=== PATIENT | female | born 1930 | race Caucasian/White ===

== ENCOUNTER 2017-10-18 18:28 | Emergency (ER) | payer OTHER, MEDICARE ==
[~2017-10-18] VITALS: Ht 154.9 cm; Wt 49.4 kg
[2017-10-18 18:50] VITALS: BP 136/74
== END 2017-10-18 23:47 | disposition admitted as inpatient to this hospital (09) ==
LOC: ERH 18:28
DX: M54.2 Cervicalgia (principal)

== ENCOUNTER 2017-11-02 11:03 | Inpatient (IN) | payer OTHER, MEDICARE ==
[~2017-11-02] VITALS: Ht 152.4 cm; Wt 54.4 kg
--- NOTE | 2017-11-02 12:31 | RADIOLOGY REPORT ---
EXAMINATION: XR FOOT, LEFT CLINICAL INFORMATION: Left ankle pain and swelling. COMPARISON: Left ankle series same day as the current study. TECHNIQUE: AP, lateral, and oblique views of the left foot. FINDINGS: There is generalized soft tissue swelling in both medial and lateral aspects of the left ankle, particularly over the dorsum of the foot. Severe degenerative changes are present at the first digit tarsometatarsal joint with joint space narrowing and juxta-articular cystic structures present on both sides of the joint space as well as sclerotic changes in the medial cuneiform. The remainder of the bony structures of the left foot are unremarkable. The bony alignment is otherwise within normal limits. 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
--- NOTE | 2017-11-02 12:33 | RADIOLOGY REPORT ---
EXAMINATION: XR ANKLE, LEFT CLINICAL INFORMATION: Left ankle pain and swelling. COMPARISON: Refer to the plain film series of the left foot performed on the same day as the current study. Right ankle series dated 10/26/2017. TECHNIQUE: AP, lateral, and mortise views of the left ankle. FINDINGS: There is generalized soft tissue swelling over the left ankle which is similar in appearance when compared to the plain film study of the right ankle on 10/26/2017. No focal soft tissue swelling is noted. The bony alignment is maintained including an intact ankle mortise. There is no evidence of an ankle joint effusion on the lateral view. The bony structures are unremarkable with no cortical defects or bony destructive changes present. IMPRESSION: Generalized soft tissue swelling, similar to the right ankle series of 10/26/2017. No acute findings are noted.
[2017-11-02] MEDS ORDERED: AMLODIPINE BES2.5 M1 PO (14:32)
[2017-11-02] MEDS ORDERED: METOPROLOL TART25 M1 PO (14:33)
[2017-11-02 16:10] LABS: ABSOLUTE BASOPHIL COUNT 0 /CUMM (0.0-0.2); ABSOLUTE EOSINOPHIL COUNT 0 /CUMM (0.0-0.7); ABSOLUTE GRANULOCYTE CT 7.5 /CUMM (1.4-6.5); ABSOLUTE LYMPH COUNT 1.1 /CUMM (1.2-3.4); ABSOLUTE MONOCYTE COUNT 0.9 /CUMM (0.10-0.60); BASOPHIL % 0.2 % (0.0-2.0); EOSINOPHIL % 0.2 % (0-5); GRANULOCYTE % 79.4 % (42.2-75.2); HEMATOCRIT 33.8 % (37-47); MEAN CORPUSCULAR HGB 31.1 PG (27.0-31.0); MEAN CORPUSCULAR HGB CONC 32.8 G/DL (33.0-37.0); MEAN CORPUSCULAR VOLUME 94.8 FL (81.0-99.0); PLATELET COUNT 370 /CUMM (130-400); RBC DISTRIBUTION WIDTH 13.1 % (11.5-14.5); RED BLOOD CELL CT 3.57 /CUMM (4.20-5.40); WHITE BLOOD CELL COUNT 9.5 /CUMM (4.8-10.8)
--- NOTE | 2017-11-02 17:23 | ED UPPER/LOWER EXTREMITY COMPL ---
History of Present Illness General Chief Complaint: Foot or Ankle Injury Stated Complaint: LFT ANKLE PAIN SENT BY PMD Source: patient, family Exam Limitations: no limitations Vital Signs & Intake/Output Vital Signs & Intake/Output Vital Signs Date Time Temp Pulse Resp B/P B/P Pulse O2 O2 Flow FiO2 Mean Ox Delivery Rate 11/02 1701 88 19 137/78 99 Room Air 11/02 1411 97 Room Air 11/02 1354 98.0 87 20 159/69 97 Room Air 11/02 1141 97.5 76 18 122/71 98 Room Air Allergies Coded Allergies: NO KNOWN ALLERGIES (12/18/13) Reconcile Medications Amlodipine Besylate 2.5 MG TABLET 1 TAB PO DAILY HEART (Reported) Meloxicam (Mobic) 7.5 MG TABLET 1 TAB PO DAILY foot pain Metoprolol Tartrate 25 MG TABLET 0.5 TAB PO BID HEART (Reported) Triage Note: 87 YO FEMALE TO TRIAGE C/O PAIN AND SWELLING TO L ANKLE. PT STATES DR DELANEY SENT HER IN FOR EVAL OF ?RUPTURED TENDON. STATES PAIN IN L ANKLE X 2 WEEKS, PT STATES SHE TRIPPED AND FELL. PA IN TRIAGE FOR EVAL. Triage Nurses Notes Reviewed? yes HPI: Patient presents for evaluation of worsening and severe constant aching left foot pain with swelling and redness. Patient's pain worsens with attempts to ambulate and she is unable to weight-bear on the affected extremity. Nothing seems to make her feel better at this point. She denies history of gout but states she fell about 2 weeks ago and her primary care physician was concerned about a ruptured tendon (patient had been on Levaquin recently). Past History Travel History Traveled to [place] past 21 day No Medical History Any Pertinent Medical History? 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 Hx Contributory? No Review of Systems Review of Systems Constitutional: Reports: no symptoms. EENTM: Reports: no symptoms. Respiratory: Reports: no symptoms. Cardiovascular: Reports: no symptoms. Gastrointestinal/Abdominal: Reports: no symptoms. Genitourinary: Reports: no symptoms. Musculoskeletal: Reports: see HPI. Skin: Reports: no symptoms. Neurological/Psychological: Reports: no symptoms. Hematologic/Endocrine: Reports: no symptoms. Immunological: Reports: no symptoms. All Other Systems: Reviewed and Negative Physical Exam Physical Exam General Appearance: SEE BELOW Comments: Gen.: Well-nourished, well-developed, no acute respiratory distress. Head: Normocephalic, atraumatic. Eyes: Normal inspection bilaterally Ears: Normal inspection bilaterally Nose: Normal inspection Throat/mouth : Moist mucosa Neck: Supple, full range of motion, no goiter Heart: Regular rate and rhythm Lungs: Quiet respirations Back: Normal range of motion Extremities: Left foot: Erythema and soft tissue swelling of the dorsal aspect over the first and second metatarsal heads, similar area of redness and swelling over the medial aspect of ankle and proximal foot. Neurologic: Cranial nerves grossly intact, speech is clear Skin: warm and dry Psychiatric: Calm, cooperative, no apparent delusions or hallucinations Progress Differential Diagnosis: cellulitis, contusion, fracture, gout, sprain Plan of Care: Orders Procedure Date/time Status Regular Diet 11/03 B Active Misc Message 11/02 2050 Active ED Holding Orders 11/02 2050 Active Admit to inpatient 11/02 2050 Active Vital Signs 11/02 2050 Active Code Status 11/02 2050 Active CASE MANAGEMENT CONSULT 11/02 180 Active C-REACTIVE PROTEIN 11/02 1540 Complete URIC ACID 11/02 1433 Complete HIGH SENSITIVITY CRP 11/02 1433 Complete CBC WITHOUT DIFFERENTIAL 11/02 143 Complete BASIC METABOLIC PANEL 11/02 1433 Complete Laboratory Tests 11/02/17 1540: Anion Gap 13, Estimated GFR > 60, BUN/Creatinine Ratio 25.7 H, Glucose 161 H, Uric Acid 3.2, Calcium 9.1, C-Reactive Prot, Quant 5.9 H, C-React Prot High Sens > 15.0 H, CBC w Diff NO MAN DIFF REQ, RBC 3.57 L, MCV 94.8, MCH 31.1 H, MCHC 32.8 L, RDW 13.1, MPV 6.0 L, Gran % 79.4 H, Lymphocytes % 11.1 L, Monocytes % 9.1, Eosinophils % 0.2, Basophils % 0.2, Absolute Granulocytes 7.5 H, Absolute Lymphocytes 1.1 L, Absolute Monocytes 0.9 H, Absolute Eosinophils 0, Absolute Basophils 0 Diagnostic Imaging: Discussed w/RAD: Radiology Read. Radiology Impression: PATIENT: NICHOLAS BLANCHARD PRESENT AGE: 61 PATIENT ACCOUNT NO: [id number] : [birth year] LOCATION: [facility] ORDERING PHYSICIAN: Forrest Coleman MD SERVICE DATE: 11/02/17 EXAM TYPE : CAT - CTA CHEST EXAMINATION: CT ANGIOGRAM CHEST CLINICAL INFORMATION: History of breast cancer. COMPARISON: CT scan of chest with IV contrast dated 2016. TECHNIQUE: Multiple axial images were obtained through the chest after the administration of 50 mL of Optiray 320 intravenous contrast. Images were reviewed on a dedicated 3-D workstation. DLP: 354.80 mGy-cm FINDINGS: EXAMINATION: CT ANGIOGRAM CHEST CLINICAL INFORMATION: History of right breast cancer evaluate for pulmonary embolism. COMPARISON: CT scan of chest abdomen and pelvis dated 09/08/2017. TECHNIQUE: Multiple axial images were obtained through the chest after the administration of 50 mL of Optiray 320 intravenous contrast. Images were reviewed on a dedicated 3-D workstation. DLP: 354.80 mGy-cm FINDINGS : The contrast bolus is suboptimal which reduces the sensitivity of this study, the study is nondiagnostic. Opacification of the pulmonary arterial system is heterogeneous without definite identification of focal areas of filling defects; areas of particularly heterogeneous regions are in the main left and right pulmonary trunks, on the right side at the bifurcation with the right upper lobe pulmonary artery. The postoperative changes in the soft tissues of the left breast are again noted, however new small pockets of gas within the subcutaneous soft tissue overlying the inferior aspect of the sternum are new since the previous study. PULMONARY PARENCHYMA: There are multiple new areas of increased density which are diffusely distributed throughout the bilateral lungs, most prominent in the superior lateral aspect of the left upper lobe but also present within the periphery of the right lower lobe, right upper lobe and central right middle lobe. 2 soft tissue pulmonary nodules present in the anterior aspect of the right middle lobe have increased in size compared to the prior study the more posterior currently measures 7 mm in diameter compared to 5 mm on the previous study, while the more anterior of the structures previously measured 2 mm on the prior study and currently measures 6 mm. The pulmonary parenchymal findings are superimposed on centrilobular emphysematous changes. New multiple soft tissue mass lesions are present in the right lung base, the largest measures 1.4 cm in greatest dimension these are more solid in appearance compared to the more superior areas of groundglass opacification. MEDIASTINUM: The mediastinal lymphadenopathy present on the prior study has increased in the interval with an interval increase in the size of the prevascular left upper mediastinal lymph node which currently measures 1.3 cm in short axis dimension compared to 0.9 on the prior study. Additionally there are multiple lymph nodes again noted in the left lateral aspect of the main left pulmonary trunk overall stable, subcarinal lymph nodes and left hilar lymph nodes are increased in size. UPPER ABDOMEN: No enhancing hepatic mass lesions are identified. The upper abdomen is overall unremarkable. OSSEOUS STRUCTURES: The bony metastatic focus within the T6 and T7 vertebral bodies are significantly increased in size as well as an interval increase in the size of multiple additional bony sclerotic structures within the spine and bilateral ribs, as well as the proximal left humerus. IMPRESSION: 1. The study is nondiagnostic for identification of filling defects within the bilateral pulmonary artery system. The heterogeneous density within the left and right main pulmonary trunks are noted and pulmonary emboli are not excluded. 2. 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 3. Increasing mediastinal and hilar lymphadenopathy. 4. Bony metastatic disease with individual foci increasing in size as well as interval development of new foci noted within the vertebral bodies and bilateral ribs as well as the proximal left humerus. 4. No enhancing hepatic mass lesions are identified at this time. DICTATED BY: Mili Stanley MD DATE/TIME DICTATED:11/02/171240 PORTRAIT PHOTOGRAPHER:STACIA DATE/TIME TRANSCRIBED:1240 CONFIDENTIAL, DO NOT COPY WITHOUT APPROPRIATE AUTHORIZATION. < Electronically signed in Other Vendor System> SIGNED BY: Mili Stanley MD 11/02/17 1323, PATIENT: MAK GRULLON PRESENT AGE: 87 PATIENT ACCOUNT NO: [id number] : 30 LOCATION: [facility] ORDERING PHYSICIAN: Abdelrahman WINTERS SERVICE DATE: 11/02/17 EXAM TYPE : RAD - XRY-FOOT COMPLETE, LEFT EXAMINATION: XR FOOT, LEFT CLINICAL INFORMATION: Left ankle pain and swelling. COMPARISON: Left ankle series same day as the current study. TECHNIQUE: AP, lateral, and oblique views of the left foot. FINDINGS: There is generalized soft tissue swelling in both medial and lateral aspects of the left ankle, particularly over the dorsum of the foot. Severe degenerative changes are present at the first digit tarsometatarsal joint with joint space narrowing and juxta-articular cystic structures present on both sides of the joint space as well as sclerotic changes in the medial cuneiform. The remainder of the bony structures of the left foot are unremarkable. The bony alignment is otherwise within normal limits. 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 DICTATED BY: Mili Stanley MD DATE/TIME DICTATED:11/02/171224 PORTRAIT PHOTOGRAPHER:STACIA DATE/ TIME TRANSCRIBED:11/02/171224 CONFIDENTIAL, DO NOT COPY WITHOUT APPROPRIATE AUTHORIZATION. <Electronically signed in Other Vendor System> SIGNED BY: Mili Stanley MD 11/02/17 1231 Comments: 11/02/2017 5:32:27 PM I have updated Mak on her test results but she feels she's incapable of ambulating given her pain. I have ordered pain medication and we' ll reevaluate. Disposition is pending. 11/02/2017 8:55:11 PM given the lack of fever or elevated white blood cell count I doubt cellulitis. Patient has been treated with an anti-inflammatory and narcotic pain reliever but has not improved enough to be able to ambulate. Departure Departure Disposition: HOME OR SELF CARE Condition: Stable Clinical Impression Primary Impression: Arthritis of foot Referrals: Allan MCKEON,Dre Regalado (PCP/Family) Additional Instructions: Mobic as prescribed for your pain. Follow-up with your primary care physician in 48 hours for reevaluation. Return if fever or any other concerns or worsening. Please note that there might be incidental findings in your evaluation that are unrelated to the current emergency department visit. Please notify your primary care doctor about this emergency department visit in order to obtain and review all of the testing performed so that these incidental findings can be monitored as needed. If you had an x-ray performed, please understand that some fractures may not be seen on the initial set of x-rays. If your symptoms persist you might need a repeat set of x-rays to check for such a fracture. If you had a laceration evaluated, please understand that foreign bodies such as glass or wood may not be visible to the naked eye or on plain x-rays. If the wound becomes red, swollen, increasingly more painful or if there is any drainage from the wound, please have it reevaluated by a physician for the possibility of a retained foreign body. If you're unable to follow up as outlined in the discharge instructions please return to the emergency department. Thank you for choosing the [facility] Emergency Department for your care. It was a pleasure to serve you today. Familia Garcia M.D. [facility] Departure Forms: Customer Survey General Discharge Information Prescriptions: Current Visit Scripts Meloxicam (Mobic) 1 TAB PO DAILY #20 TAB Admission Note Spoke With: Ghanshyam MCKEON,Anni Documentation of Exam: Documentation of any treatments & extenuating circumstances including Concerns Regarding Discharge (functional status, medication knowledge or non-compliance, living conditions, etc.) that warrant an admission rather than observation: Patient presents with worsening redness and swelling of the left foot consistent with arthritis. The patient is unable to bear weight on the foot secondary to severe pain despite medication with anti-inflammatories and narcotic pain relievers. I feel she is unsafe for outpatient management given her high risk of fall with subsequent injury and inability to manage ADLs. She would likely return in worse clinical condition. I feel she now requires hospitalization for nonweightbearing along with treatment with anti-inflammatories and narcotic pain relievers. Physical therapy consultation should be obtained to assess the patient's gait stability and potential for falling. Rheumatology consultation should be considered if patient's symptoms do not respond to treatment. I feel this patient will require a multiple day hospitalization.
[2017-11-02] MEDS ORDERED: MOBIC7.5 M1 PO (17:25)
--- NOTE | 2017-11-02 22:16 | History & Physical ---
Lili MCKEON,Martine 11/02/17 4306: General Information and HPI MD Statement: I have seen and personally examined MAK GRULLON and documented this H&P. The patient is a 87 year old F who presented with a patient stated chief complaint of left ankle pain. Source of Information: patient, family Exam Limitations: no limitations History of Present Illness: 87 years old female with past medical history of CAD, hypertension comes to the ED complaining of pain in the left ankle, she reports that pain was getting worse over the past 2 weeks, it was associated with sweating and redness of the left ankle, the pain got worse to the point that she was not able to put any weight on her leg today. She went to her primary care doctor and recommended MRI however she had to wait 2 days to get this when she decided to come to the ED to be evaluated. Patient also reports frequent fleeting arthralgia affecting her right elbow, shoulder, neck however these joints were not swollen or inflamed. Patient denies nausea, vomiting, chest pain, diarrhea or constipation. She follow up with his test center administrator Dr. Horton for irregular heartbeats and he discontinued her Lipitor recently due to elevated liver enzymes. Patient had strep pneumonia recently and was treated with a course of levofloxacin after which she started to deteriorate and was noticed by her family to be disoriented, confused and exhausted, she was also noticed to have visual hallucinations while she was on the levofloxacin. She stopped it one week ago. Patient denies any injury to her lower extremity, she also denies any recent travel or sick contacts. Patient lives at home and is independent in her daily activities Vital signs on admission: Temperature 97.8, blood pressure 118/60, pulse 76 Labs: WBC 9.5, hemoglobin 11.1, platelets 370, sodium 138, potassium 4.1, BUN 18 , creatinine 0.7, glucose 161, CRP 5.9, AST 39, AST 63 Allergies/Medications Allergies: Coded Allergies: NO KNOWN ALLERGIES (12/18/13) Home Med list Amlodipine Besylate 2.5 MG TABLET 1 TAB PO DAILY HEART (Reported) Aspirin (Ecotrin*) 81 MG TABLET.DR 1 TAB PO DAILY HEART HEALTH (Reported) Meloxicam (Mobic) 7.5 MG TABLET 1 TAB PO DAILY foot pain Metoprolol Tartrate 25 MG TABLET 0.5 TAB PO BID HEART (Reported) Past History Travel History Traveled to [place] past 21 day No Medical History Neurological: NONE EENT: NONE Cardiovascular: CAD, hypertension Respiratory: NONE Gastrointestinal: NONE Hepatic: NONE Renal: NONE Musculoskeletal: NONE Psychiatric: NONE Endocrine: NONE Blood Disorders: NONE Cancer(s): NONE 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 Cardiovascular: Denies: chest pain, edema, orthopena, palpitations. Respiratory: Denies: cough, hemoptysis, orthopnea, short of breath. GI: Denies: abdominal pain, bloating, diarrhea, bowel incontinence, melena, nausea. Genitourinary: Denies: discharge, dysuria, frequency, hesitation, nocturia, pain. Musculoskeletal: Reports: joint pain, joint swelling. Skin: Denies: no symptoms. Neurological/Psychological: Reports: cognitive dysfunction, confusion. Hematologic/Endocrine: Denies: no symptoms. Immunologic/Allergic: Denies: no symptoms. Exam & Diagnostic Data Last 24 Hrs of Vital Signs/I&O Vital Signs Date Time Temp Pulse Resp B/P B/P Pulse O2 O2 Flow FiO2 Mean Ox Delivery Rate 11/03 0031 65 142/76 11/02 2244 97.7 80 19 150/82 95 Room Air 11/02 2109 97.8 76 18 118/60 98 Room Air 11/02 1701 88 19 137/78 99 Room Air 11/02 1411 97 Room Air 11/02 1354 98.0 87 20 159/69 97 Room Air 11/02 1141 97.5 76 18 122/71 98 Room Air Intake & Output 11/03 0800 11/03 0000 11/02 1600 Intake Total 200 0 Output Total 150 Balance 50 0 Intake, IV 0 Intake, Oral 200 Output, Urine 150 Patient 120 lb 120 lb Weight Weight Reported by Patient Estimated Measurement Method Physical Exam General Appearance Alert, Oriented X3, Cooperative, No Acute Distress Skin No Rashes, No Breakdown, No Significant Lesion HEENT Atraumatic, PERRLA, EOMI, Mucous Membr. moist/pink Neck Supple, No JVD Cardiovascular Normal S1, Normal S2, No Murmurs Lungs Clear to Auscultation Abdomen Normal Bowel Sounds, Soft, No Tenderness Neurological Normal Speech, Strength at 5/5 X4 Ext, Normal Tone Extremities No Clubbing, No Cyanosis, left ankle is erythematous, warm and tender to touch Vascular Normal Pulses Assessment/Plan Assessment: 87 years old female with past medical history of CAD, hypertension comes to the ED complaining of pain in the left ankle, she reports that pain was getting worse over the past 2 weeks, it was associated with sweating and redness of the left ankle, the pain got worse to the point that she was not able to put any weight on her leg today.Patient also reports frequent fleeting arthralgia affecting her right elbow, shoulder, neck however these joints were not swollen or inflamed. #Left ankle arthritis X-ray show significant degenerative changes in the first digit tarsometatarsal joint, ankle x-ray showed generalized soft tissue swelling, elevated CRP Admitted to general medicine floor Obtain MRI of the left ankle PT evaluation for placement Follow up on perez culture and urinalysis Pain control with Tylenol, ibuprofen tramadol Rheumatology consult appreciated Close monitoring of vital signs Please contact Dr. Zambrano to obtain an cardiac history #Cognitive impairment: CT scan on October 26 was negative for any hemorrhage or infarct Was noticed by the family Improved after discontinuing levofloxacin Avoid delirium trigger #History of transaminitis: Check LFT Chronic medical conditions including CAD and hypertension Continue home meds of aspirin, amlodipine 2.5, metoprolol 12.5 mg twice a day Patient is full code DVT prophylaxis with Lovenox Heart healthy diet As Ranked By This Provider Problem List: 1. Arthritis of foot 2. Elevated LFTs Core Measures/Misc (05/30) Acute Coronary Syndrome ACS Diagnosis: No Congestive Heart Failure Congestive Heart Failure Diagnosis No Cerebrovascular Accident CVA/TIA Diagnosis: No VTE (View Protocol) VTE Risk Factors Age>40 No Mechanical VTE Prophylaxis d/t N/A MechProphylax Ordered No VTE Pharm Prophylaxis d/t NA PharmProphylax ordered Sepsis (View protocol) Sepsis Present: No Kwesi Crisostomo 11/03/17 0605: Resident Review Statement Resident Statement: examined this patient, discussed with help desk internship, agreed with help desk internship, discussed with family, reviewed EMR data (avail), discussed with nursing , discussed with case mgmt, reviewed images, amended to note Other Findings: This is 87 years old female with medical history of CAD, hypertension, arthritis. She presented to emergency department with chief complaint of pain in the left ankle, she reports that pain was getting worse over the past 2 weeks , it was associated with redness of the left ankle, the pain got worse to the point that she was not able to put any weight on her leg today or to walk well. The family and the patient stated that around 4-5 weeks ago she did develop strep throat and she went to see her primary care doctor who prescribed for her antibiotic but after one week(received cefuroxime for 7 days followed with levofloxacin for another 7 days]. Condition did not improve so she went back for further evaluation and he changed antibiotic and he stated that she had a bronchitis. According to her daughter since then the patient was disoriented and confused and also her mentioned that she had a visual hallucination. The daughter states her mental status slightly improve comparing with that time , patient was sent to ED on last week and head CAT scan was done that did not show any acute pathological process. About 2 weeks ago she started to have multiple joint swelling and pain, she report both elbows and both ankle joint that resolved by itself she went to see her primary care doctor who plan to obtain MRI for the further assessment. Patient stopped taking his Lipitor 1 week ago due to transaminitis. Physical examination, lab and imaging as above. Problem list: -Migratory arthritis with elevated CRP -Generalized weakness WITH difficult ambulation -History of confusion, disorientation -History of transaminitis Plan: -Admit patient to general medicine floor -Vitals every shift -We'll hold off on antibiotic for now, Panculture, urinalysis. -Rheumatology consultation in a.m. -Please obtain the MRI of the right foot/ankle as the patient is scheduled to do it today as an outpatient. -Check LFTs, acceptable limits start the patient on as needed Motrin, Tylenol, tramadol -Please contact the patient test center administrator Dr. Lorenzo to obtain more information about her cardiac history. -Physical therapy consultation in a.m. for placement. -Continue home medication -Heart healthy diet -DVT prophylaxis subcutaneous Lovenox -Full code Ghanshyam MCKEON, [facility] 11/03/17 0837: Attending Review Statement Attending Statement Attending Statement: examined this patient, discuss w/resident/PA/EMPLOYEE COMMUNICATIONS SPECIALIST, agreed w/resident/PA/EMPLOYEE COMMUNICATIONS SPECIALIST, discussed with family, reviewed images, amended to note Attending Assessment/Plan: 87 yo F with h/o CAD s/p atherectomy, HTN, severe OA, Dequervain synovitis, recently treated for strep throat (cefuroxime) and bronchitis (levofloxacin), is here for evaluation of left foot pain and swelling with inability to ambulate or even bear weight over the past 2 weeks. Family also reports confusion and disorientation with visual hallucination while she was on levofloxacin for bronchitis, but it seems to be clearing up. She was seen in the ER 1 week back after a fall at home, imaging did not reveal any acute changes. Patient also notes that she has had shoulder followed elbow and now ankle joint pain/ swelling. She is scheduled for MRI of left foot today. Vitals stable. Exam as above. Labs: no leukocytosis, AST 39, ALT 63, elevated CRP. Uric acid levels normal. Ankle Xray: generalized soft tissue swelling. Foot Xray left: severe degenerative changes in first digit tarsometatarsal joint. Assessment and plan: 1. Left ankle pain with gait instability 2. Severe osteoarthritis with elevated CRP 3. Confusion possible delirium improving. 4. History of CAD and HTN 5. Transaminitis likely recent antibiotic induced - Admit to General medicine - Fall precautions - Check ESR and RF - Panculture, watch off antibiotics, low suspicion for left foot cellulitis - MRI left foot in AM - Obtain rheumatology consult - Pain management with tylenol, NSAIDs and tramadol - PT consult, possible placement - Obtain EKG - Resume amlodipine, aspirin, metoprolol. - Since LFTs are trending down, resume statin. DVT ppx Lovenox. Full code.
[2017-11-02 22:44] VITALS: BP 150/82
[2017-11-02] MEDS ORDERED: ASPIRIN EC81 M1 PO (22:49)
--- NOTE | 2017-11-03 04:33 | Admission Certification ---
Admission Certification Certification Statement - As attending physician, I certify that at the time of - admission, based on clinical presentation, severity of - symptoms, need for further diagnostic testing and - therapeutic interventions, and risk of adverse outcomes - without in-hospital treatment, in my clinical assessment, - this patient requires an acute hospital stay for a minimum - of two nights or longer. I have also considered psychsocial - factors such as support system, advanced age, financial - issues, cognitive issues, and failed out-patient treatments, - past re-admission history, safety of patient, and lack of - compliance as applicable. Specific rationale supporting this admission is: Left foot pain, gait instability.
[2017-11-03 05:28] VITALS: BP 150/84
--- NOTE | 2017-11-03 07:06 | PN- Housestaff ---
See Addendum Subjective Follow-up For: Left ankle pain Subjective: Admitted last night for left ankle pain preventing her from walking. This morning, she has no pain at rest and feels good. Mentions that she fell last week, does not remember injuring left ankle but patrient is poor historian. Daughter was present, did not witness fall. 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 She had bronchitis recently but no fevers, chills, or night sweats. Review of Systems Constitutional: Reports: no symptoms. EENTM: Reports: no symptoms. Cardiovascular: Reports: no symptoms. Respiratory: Reports: no symptoms. Gastrointestinal: Reports: no symptoms. Genitourinary: Reports: no symptoms. Musculoskeletal: Reports: see HPI. Skin: Reports: no symptoms. Neurological/Psychological: Reports: no symptoms. Hematologic/Endocrine: Reports: no symptoms. Immunologic/Allergic: Reports: no symptoms. Objective Last 24 Hrs of Vital Signs/I&O Vital Signs Date Time Temp Pulse Resp B/P B/P Pulse O2 O2 Flow FiO2 Mean Ox Delivery Rate 11/03 0528 98.1 70 20 150/84 98 Room Air 11/03 0031 65 142/76 11/02 2244 97.7 80 19 150/82 95 Room Air 11/02 2109 97.8 76 18 118/60 98 Room Air 11/02 1701 88 19 137/78 99 Room Air 11/02 1411 97 Room Air 11/02 1354 98.0 87 20 159/69 97 Room Air 11/02 1141 97.5 76 18 122/71 98 Room Air Intake & Output 11/03 0800 11/03 0000 11/02 1600 Intake Total 200 0 Output Total 150 Balance 50 0 Intake, IV 0 Intake, Oral 200 Output, Urine 150 Patient 54.431 kg 54.431 kg Weight Weight Reported by Patient Estimated Measurement Method Physical Exam General Appearance: Alert, Cooperative, No Acute Distress Cardiovascular: Regular Rate, Normal S1, Normal S2 Lungs: Clear to Auscultation Abdomen: Normal Bowel Sounds, Soft, No Tenderness Neurological: Normal Speech Extremities: Estefani's nodes on hands, nontender. Feet normal on inspection, nontender to palpation. Mild pain to ankle flexion on left, ROM intact. Current Medications: Current Medications Sig/Sabas Start time Last Medication Dose Route Stop Time Status Admin Acetaminophen 500 MG Q8P PRN 11/020 AC PO Amlodipine Besylate 2.5 MG DAILY 11/03 1000 AC PO Aspirin Buffered 81 MG DAILY 11/03 1000 AC PO Enoxaparin Sodium 40 MG DAILY 11/03 1000 AC SC Ibuprofen 400 MG Q8P PRN 11/02 2315 AC PO Ibuprofen 0 .STK-MED ONE 11/02 1741 DC PO Ibuprofen 400 MG ONCE ONE 11/02 1730 DC 11/02 PO 11/02 1731 1738 Metoprolol Tartrate 12.5 MG BID 11/02 2359 AC 11/03 PO 0031 Oxycodone HCl 5 MG Q12P PRN 11/02 2299 DC PO Tramadol HCl 50 MG Q8 PRN 11/02 2300 AC PO Tramadol HCl 50 MG ONCE ONE 11/02 174 DC 11/02 PO 11/02 174 1738 Tramadol HCl 0 .STK-MED ONE 11/02 1741 DC PO Last 24 Hrs of Lab/Alfredo Results Last 24 Hrs of Labs/Mics: Laboratory Tests 11/02/17 1540: Anion Gap 13, Estimated GFR > 60, BUN/Creatinine Ratio 25.7 H, Glucose 161 H, Uric Acid 3.2, Calcium 9.1, Magnesium 2.1, Total Bilirubin 0.5, Direct Bilirubin 0.2, AST 39 H, ALT 63 H, Alkaline Phosphatase 108, C-Reactive Prot, Quant 5.9 H, C-React Prot High Sens > 15.0 H, Total Protein 6.7, Albumin 3.4 L, CBC w Diff NO MAN DIFF REQ, RBC 3.57 L, MCV 94.8, MCH 31.1 H, MCHC 32.8 L, RDW 13.1 , MPV 6.0 L, Gran % 79.4 H, Lymphocytes % 11.1 L, Monocytes % 9.1, Eosinophils % 0.2, Basophils % 0.2, Absolute Granulocytes 7.5 H, Absolute Lymphocytes 1.1 L, Absolute Monocytes 0.9 H, Absolute Eosinophils 0, Absolute Basophils 0 Microbiology 11/02 2309 BLOOD: Blood Culture - RECD 11/02 2299 BLOOD: Blood Culture - RECD 11/02 2250 URINE ROUT: Urine Culture - COLB Assessment/Plan Assessment: 87 years old female with past medical history of CAD and hypertension who presented with complaints of pain in the left ankle. Problem list 1. Left ankle pain #Left ankle pain: X-ray show degenerative changes and soft tissue swelling but no fracture. Exam today reveals tenderness on flexion of the metatarsal joint and ankle. We'll get an MRI. Differential includes stress fracture versus fasciitis versus sprain. Gout and pseudogout are less likely because there is no effusion, uric acid not elevated. It does seem like she fell last week. CRP was elevated. -MRI left ankle with gadolinium -PT evaluation -Pain control -Consider consulting rheumatology depending on MRI -ESR #Chronic medical conditions: -Continue home medications DVT prophylaxis with enoxaparin Heart healthy diet Full code Problem List: 1. Left ankle pain Pain Ratin Pain Location: ankle Pain Goal: Remain pain free Pain Plan: see a/p Tomorrow's Labs & Rationales: no
[2017-11-03 08:01] LABS: ABSOLUTE BASOPHIL COUNT 0 /CUMM (0.0-0.2); ABSOLUTE EOSINOPHIL COUNT 0.1 /CUMM (0.0-0.7); ABSOLUTE LYMPH COUNT 1.4 /CUMM (1.2-3.4); ABSOLUTE MONOCYTE COUNT 0.6 /CUMM (0.10-0.60)
[2017-11-03 08:21] LABS: ABSOLUTE GRANULOCYTE CT 5.4 /CUMM (1.4-6.5); BASOPHIL % 0.3 % (0.0-2.0); EOSINOPHIL % 1.4 % (0-5); GRANULOCYTE % 71.8 % (42.2-75.2); HEMATOCRIT 28.9 % (37-47); MEAN CORPUSCULAR HGB 31.7 PG (27.0-31.0); MEAN CORPUSCULAR HGB CONC 33.3 G/DL (33.0-37.0); MEAN CORPUSCULAR VOLUME 95.1 FL (81.0-99.0); MEAN PLATELET VOLUME 6.2 FL (7.4-10.4); PLATELET COUNT 335 /CUMM (130-400); RBC DISTRIBUTION WIDTH 13.1 % (11.5-14.5); RED BLOOD CELL CT 3.04 /CUMM (4.20-5.40); WHITE BLOOD CELL COUNT 7.5 /CUMM (4.8-10.8)
[2017-11-03 13:38] VITALS: BP 108/66
[2017-11-03 21:40] VITALS: BP 140/72
[2017-11-04 06:16] VITALS: BP 126/78
--- NOTE | 2017-11-04 07:04 | PN- Housestaff ---
See Addendum Subjective Follow-up For: left ankle pain Subjective: no overnight events. she slept well. does not have ankle pain at rest. Review of Systems Constitutional: Reports: no symptoms. EENTM: Reports: no symptoms. Cardiovascular: Reports: no symptoms. Respiratory: Reports: no symptoms. Gastrointestinal: Reports: no symptoms. Genitourinary: Reports: no symptoms. Musculoskeletal: Reports: see HPI. Skin: Reports: no symptoms. Neurological/Psychological: Reports: no symptoms. Hematologic/Endocrine: Reports: no symptoms. Immunologic/Allergic: Reports: no symptoms. Objective Last 24 Hrs of Vital Signs/I&O Vital Signs Date Time Temp Pulse Resp B/P B/P Pulse O2 O2 Flow FiO2 Mean Ox Delivery Rate 11/04 0616 98.1 67 20 126/78 96 Room Air 11/03 2140 97.8 74 20 140/72 96 Room Air 11/03 2114 74 140/72 11/03 1513 Room Air 11/03 1338 97.7 68 20 108/66 95 11/03 1226 Room Air 11/03 1021 78 126/78 11/03 1020 78 126/78 Intake & Output 11/04 0800 11/04 0000 11/03 1600 Intake Total 240 240 720 Output Total 600 Balance 240 240 120 Intake, Oral 240 240 720 Output, Urine 600 Physical Exam General Appearance: Alert, Oriented X3, Cooperative, No Acute Distress Cardiovascular: Regular Rate, Normal S1, Normal S2 Lungs: Clear to Auscultation, Normal Air Movement Abdomen: Normal Bowel Sounds, Soft, No Tenderness Extremities: mild tendernes to palpation and flexion of ankle Current Medications: Current Medications Sig/Sabas Start time Last Medication Dose Route Stop Time Status Admin Acetaminophen 975 MG Q8P PRN 11/03 1100 AC PO Acetaminophen 500 MG Q8P PRN 11/02 2300 DC PO Amlodipine Besylate 2.5 MG DAILY 11/03 1000 AC 11/03 PO 1020 Aspirin Buffered 81 MG DAILY 11/03 1000 AC 11/03 PO 1020 Enoxaparin Sodium 40 MG DAILY 11/03 1000 AC 11/03 SC 1021 Ibuprofen 400 MG Q8P PRN 11/02 2315 AC PO Metoprolol Tartrate 12.5 MG BID 11/02 2359 AC 11/03 PO 2114 Patient Medication 1 ED ONE ONE 11/03 1115 DC Teaching ED 11/03 1116 Tramadol HCl 50 MG Q8 PRN 11/02 2300 DC PO Last 24 Hrs of Lab/Alfredo Results Last 24 Hrs of Labs/Mics: Laboratory Tests 11/03/17 1405: ESR Westergren 129 H Assessment/Plan Assessment: 87 years old female with past medical history of CAD and hypertension who presented with complaints of pain in the left ankle. Problem list 1. Left ankle pain #Left ankle pain: X-ray show degenerative changes and soft tissue swelling but no fracture. Exam today reveals tenderness on flexion of the metatarsal joint and ankle. We'll get an MRI. Differential includes stress fracture versus fasciitis versus sprain. Gout and pseudogout are less likely because there is no effusion, uric acid not elevated. It does seem like she fell last week. CRP and ESR was elevated. -MRI left ankle with gadolinium: Was not able to get yesterday because MR machine is broken, consider discharging home with a boot and scheduling outpatient MRI -PT evaluation -Pain control -Consider consulting rheumatology depending on MRI -ESR #Chronic medical conditions: -Continue home medications DVT prophylaxis with enoxaparin Heart healthy diet Full code Problem List: 1. Left ankle pain Pain Ratin Pain Location: ankle Pain Goal: Remain pain free Pain Plan: see a/p Tomorrow's Labs & Rationales: no
--- NOTE | 2017-11-04 07:58 | Discharge Summary ---
Visit Information Visit Dates Admission Date: 11/02/17 Discharge Date: 11/05/17 Hospital Course Course Attending Physician: Francisco Werner MD Primary Care Physician: Dre Lemus MD Hospital Course: 87 years old female with past medical history of CAD and hypertension who presented with complaints of pain in the left ankle. The patient was seen in the ED 1 week prior to that admission after a fall at home, imaging did not reveal any acute changes for which the patient was discharged home when the pain control medications. During this admission X-ray of the right ankle showed degenerative changes and soft tissue swelling but no fracture. Physical Exam revealed tenderness on flexion of the metatarsal joint and ankle. MRI was inconclusive, indicated potential arthritis, sequelae of trauma, stress injury, or mild fasciitis. The patient reported similar symptoms in the past. CRP and ESR was elevated. She had mild swelling and warmth on exam but without erythema. Physical therapy recommended STR. It is possible that the patient has pseudogout or gout, taping the joint was unsuccessful given no effusion. The patient will feels much better on discharge, she will be discharged on pain medication and instructed to follow up with rheumatology as an out patient when the pain is active again. Allergies: Coded Allergies: NO KNOWN ALLERGIES (12/18/13) Pertinent Lab Results: SERVICE DATE: 11/04/17-EXAM TYPE: MRI - MRI-LT ANKLE W/O HENNY; MRI-LT FOOT W/O HENNY EXAMINATION: MR ANKLE WITHOUT CONTRAST, LEFT MRI FOOT WITHOUT CONTRAST, LEFT CLINICAL INFORMATION: Pain, swelling. Presumptive diagnosis of fasciitis versus stress fracture. COMPARISON: None. TECHNIQUE: Multiplanar MR imaging was performed on a high-field scanner without intravenous contrast. FINDINGS: MRI ANKLE: There is significant motion artifact markedly degrading the images, markedly limiting evaluation. There is a soft tissue marker positioned in the dorsal aspect of the distal tibia and dorsal to the talonavicular joint. BONE/JOINTS: There is a T2 bright, low T1 signal in the subchondral region, anteromedial aspect of the antral process of the calcaneus at the calcaneus-cuboid articulation. Characterization of signal abnormality is limited due to motion artifact. Based on the MRI sequences obtained of the foot, this reflects edema, possible cystic changes. Differential considerations include sequela of degeneration, posttraumatic etiology, stress changes. Limited evaluation of the bones otherwise in the hindfoot. No gross abnormality is identified in the talar dome. MUSCLES/TENDONS: Evaluation limited by artifact. Mild tenosynovitis posterior tibial. Medial flexor, peroneal, extensor tendons are grossly intact. LIGAMENTS: Limited evaluation. Tibiofibular, talofibular ligaments are grossly intact. Calcaneofibular ligament is not well seen. Limited evaluation of the deltoid ligament, with possible sprain of the deep fibers deltoid ligament. ACHILLES TENDON: Grossly intact on the provided sequences. PLANTAR FASCIA: Evaluation limited by artifact. There is edema associated with the central band of the plantar fascia, as seen on the short-axis images. This may reflect mild fasciitis. No gross discontinuity is evident on the provided sequences. SINUS TARSI: Limited evaluation. MISCELLANEOUS: There is extensive subcutaneous edema present. MR FOOT: Soft tissue marker positioned on the dorsal aspect of the 1st tarsometatarsal joint. There is wnfktdxg-dn-ioxbns arthritic changes of the 1st tarsometatarsal joint. There are zoyd-im-vminewpi arthritic changes present in the 2nd, 3rd and 4th tarsometatarsal joints. This is characterized by subchondral edema, spurring. No evidence of significant edema to indicate a significant stress injury or fracture in the metatarsals. Mild hallux sesamoid/metatarsal articulation degeneration. Visualized tendons are intact. More anterior aspect of the plantar fascia appears intact. Dorsal subcutaneous edema present. IMPRESSION: 1. Significant motion artifact markedly degrading imaging, markedly limiting evaluation, especially on the ankle MRI. Repeat MRI can be obtained as clinically warranted. 2. Subchondral signal abnormality in the anteromedial aspect of the anterior process of the calcaneus at the calcaneus-cuboid articulation. Differential considerations include arthritic changes, sequela of trauma, stress injury. 3. Arthritic changes in the tarsometatarsal joint. The most prominent changes are in the 1st tarsometatarsal joint of cehcwnoo-mp-iimppn arthritis. 4. Mild tenosynovitis posterior tibial. 5. Limited evaluation of the ligaments. Possible sprain deep fibers deltoid ligament. 6. Limited evaluation the plantar fascia. Possible mild fasciitis. 7. Additional findings and details in the body off the report. DICTATED BY: Duane Pollock MD DATE/TIME DICTATED:11/04/171300 [employer] SUPERVISOR:STACIA DATE/TIME TRANSCRIBED:11/04/171300 SERVICE DATE: 11/02/1764-4542-NAEK TYPE: RAD - XRY-ANKLE 3 OR MORE VIEWS L EXAMINATION: XR ANKLE, LEFT CLINICAL INFORMATION: Left ankle pain and swelling. COMPARISON: Refer to the plain film series of the left foot performed on the same day as the current study. Right ankle series dated 10/26/2017. TECHNIQUE: AP, lateral, and mortise views of the left ankle. FINDINGS: There is generalized soft tissue swelling over the left ankle which is similar in appearance when compared to the plain film study of the right ankle on 10/26/2017. No focal soft tissue swelling is noted. The bony alignment is maintained including an intact ankle mortise. There is no evidence of an ankle joint effusion on the lateral view. The bony structures are unremarkable with no cortical defects or bony destructive changes present. IMPRESSION: Generalized soft tissue swelling, similar to the right ankle series of 10/26/2017. No acute findings are noted. DICTATED BY: Mili Stanley MD DATE/TIME DICTATED:11/02/171224 [employer] SUPERVISOR:STACIA DATE/TIME TRANSCRIBED:11/02/171224 SERVICE DATE: 11/02/1792-3000-QZZZ TYPE: RAD - XRY-FOOT COMPLETE, LEFT EXAMINATION: XR FOOT, LEFT CLINICAL INFORMATION: Left ankle pain and swelling. COMPARISON: Left ankle series same day as the current study. TECHNIQUE: AP, lateral, and oblique views of the left foot. FINDINGS: There is generalized soft tissue swelling in both medial and lateral aspects of the left ankle, particularly over the dorsum of the foot. Severe degenerative changes are present at the first digit tarsometatarsal joint with joint space narrowing and juxta-articular cystic structures present on both sides of the joint space as well as sclerotic changes in the medial cuneiform. The remainder of the bony structures of the left foot are unremarkable. The bony alignment is otherwise within normal limits. 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 DICTATED BY: Mili Stanley MD DATE/TIME DICTATED:11/02/171224 [employer] SUPERVISOR:HOWARD DATE/TIME TRANSCRIBED:11/02/171224 Disposition Summary Disposition Principal Diagnosis: Left ankle pain likely 2/2 muscle strain post fall but inflammatory joint is possible Additional Diagnosis: CAD HTN Discharge Disposition: SNF Discharge Instructions General Discharge Information Code Status: Full Code Patient's Diet: Heart healthy Patient's Activity: as tolerated Follow-Up Instructions/Appts: please follow up with PCP within 1-2 weeks of discharge please follow up with rheumatology if symptoms reoccur Medications at Discharge Discharge Medications: Continue taking these medications: Amlodipine Besylate (Amlodipine Besylate) 2.5 MG TABLET 1 Tablet ORAL DAILY Qty = 90 Comments: Last Taken: 11/05/17 Time: 10:45 AM Metoprolol Tartrate (Metoprolol Tartrate) 25 MG TABLET 0.5 Tablet ORAL TWICE DAILY Qty = 90 Comments: Last Taken: 11/05/17 Time: 10:45 AM Meloxicam (Mobic) 7.5 MG TABLET 1 Tablet ORAL DAILY Qty = 20 Comments: NOT GIVEN IN HOSPITAL Aspirin (Ecotrin*) 81 MG TABLET.DR 1 Tablet ORAL DAILY Days = 30 Comments: Last Taken: 11/05/17 Time: 10:45 AM Start taking the following new medications: Diclofenac Sodium (Voltaren) 1 % GEL..GRAM. 1 Gram On the skin 4 TIMES A DAY as needed for Arthritis Pain Qty = 1 No Refills Instructions: apply to affected area(s) Comments: NOT GIVEN IN HOSPITAL Copies To: Allan MCKEON,Dre Moralez MD,Madhav Bernal
--- NOTE | 2017-11-04 08:07 | Patient Discharge Instructions ---
Discharge Instructions General Discharge Information You were seen/treated for: Left ankle pain Watch for these problems: Fever chest pain or shortness of breath Special Instructions: Please take medications as directed. Please follow-up with primary care and rheumatology. Diet Continue normal diet: Yes Activity Full Activity/No Limits: No Activity Self Limited: Yes Acute Coronary Syndrome Inclusion Criteria At DC or during hospital stay patient has or had the following: ACS DIAGNOSIS No Discharge Core Measures Meds if any: Prescribed or Continued at Discharge Meds if any: NOT Prescribed or Continued at Discharge Congestive Heart Failure Inclusion Criteria At DC or during hospital stay patient has or had the following: CHF DIAGNOSIS No Discharge Core Measures Meds if any: Prescribed or Continued at Discharge Meds if any: NOT Prescribed or Continued at Discharge Cerebrovascular accident Inclusion Criteria At DC or during hospital stay patient has or had the following: CVA/TIA Diagnosis No Discharge Core Measures Meds if any: Prescribed or Continued at Discharge Meds if any: NOT Prescribed or Continued at Discharge Venous thromboembolism Inclusion Criteria VTE Diagnosis No VTE Type NONE VTE Confirmed by (Test) NONE Discharge Core Measures - Per Current guidelines, there needs to be overlap - treatment for the first 5 days of Warfarin therapy. - If discharged on Warfarin prior to 5 days of - overlap therapy, the patient will need to be - assessed for post discharge needs including - *Post discharge parental anticoagulation - *Warfarin and/or parental anticoagulation education - *Follow up date to check INR post discharge At least 5 days overlap therapy as Inpatient No Meds if any: Prescribed or Continued at Discharge Note: Overlap Therapy is Warfarin and Anticoagulant Meds if any: NOT Prescribed or Continued at Discharge
--- NOTE | 2017-11-04 15:12 | MRI REPORT ---
EXAMINATION: MR ANKLE WITHOUT CONTRAST, LEFT MRI FOOT WITHOUT CONTRAST, LEFT CLINICAL INFORMATION: Pain, swelling. Presumptive diagnosis of fasciitis versus stress fracture. COMPARISON: None. TECHNIQUE: Multiplanar MR imaging was performed on a high-field scanner without intravenous contrast. FINDINGS: MRI ANKLE: There is significant motion artifact markedly degrading the images, markedly limiting evaluation. There is a soft tissue marker positioned in the dorsal aspect of the distal tibia and dorsal to the talonavicular joint. BONE/JOINTS: There is a T2 bright, low T1 signal in the subchondral region, anteromedial aspect of the antral process of the calcaneus at the calcaneus-cuboid articulation. Characterization of signal abnormality is limited due to motion artifact. Based on the MRI sequences obtained of the foot, this reflects edema, possible cystic changes. Differential considerations include sequela of degeneration, posttraumatic etiology, stress changes. Limited evaluation of the bones otherwise in the hindfoot. No gross abnormality is identified in the talar dome. MUSCLES/TENDONS: Evaluation limited by artifact. Mild tenosynovitis posterior tibial. Medial flexor, peroneal, extensor tendons are grossly intact. LIGAMENTS: Limited evaluation. Tibiofibular, talofibular ligaments are grossly intact. Calcaneofibular ligament is not well seen. Limited evaluation of the deltoid ligament, with possible sprain of the deep fibers deltoid ligament. ACHILLES TENDON: Grossly intact on the provided sequences. PLANTAR FASCIA: Evaluation limited by artifact. There is edema associated with the central band of the plantar fascia, as seen on the short-axis images. This may reflect mild fasciitis. No gross discontinuity is evident on the provided sequences. SINUS TARSI: Limited evaluation. MISCELLANEOUS: There is extensive subcutaneous edema present. MR FOOT: Soft tissue marker positioned on the dorsal aspect of the 1st tarsometatarsal joint. There is aqowppdj-qk-thfpxl arthritic changes of the 1st tarsometatarsal joint. There are ggiw-pd-prxrtjvb arthritic changes present in the 2nd, 3rd and 4th tarsometatarsal joints. This is characterized by subchondral edema, spurring. No evidence of significant edema to indicate a significant stress injury or fracture in the metatarsals. Mild hallux sesamoid/metatarsal articulation degeneration. Visualized tendons are intact. More anterior aspect of the plantar fascia appears intact. Dorsal subcutaneous edema present. IMPRESSION: 1. Significant motion artifact markedly degrading imaging, markedly limiting evaluation, especially on the ankle MRI. Repeat MRI can be obtained as clinically warranted. 2. Subchondral signal abnormality in the anteromedial aspect of the anterior process of the calcaneus at the calcaneus-cuboid articulation. Differential considerations include arthritic changes, sequela of trauma, stress injury. 3. Arthritic changes in the tarsometatarsal joint. The most prominent changes are in the 1st tarsometatarsal joint of efcivejq-ov-jakjzt arthritis. 4. Mild tenosynovitis posterior tibial. 5. Limited evaluation of the ligaments. Possible sprain deep fibers deltoid ligament. 6. Limited evaluation the plantar fascia. Possible mild fasciitis. 7. Additional findings and details in the body off the report.
[2017-11-04 15:17] VITALS: BP 112/68
[2017-11-04 21:40] VITALS: BP 148/96
[2017-11-04 22:11] VITALS: BP 122/66
[2017-11-05 06:25] VITALS: BP 112/74
--- NOTE | 2017-11-05 07:25 | PN- Housestaff ---
Subjective Follow-up For: Left ankle/foot arthritis Subjective: No overnight events. Pain is good at rest and even improving when walking. No other issues. Review of Systems Constitutional: Reports: no symptoms. EENTM: Reports: no symptoms. Cardiovascular: Reports: no symptoms. Respiratory: Reports: no symptoms. Gastrointestinal: Reports: no symptoms. Genitourinary: Reports: no symptoms. Musculoskeletal: Reports: see HPI. Skin: Reports: no symptoms. Neurological/Psychological: Reports: no symptoms. Hematologic/Endocrine: Reports: no symptoms. Immunologic/Allergic: Reports: no symptoms. Objective Last 24 Hrs of Vital Signs/I&O Vital Signs Date Time Temp Pulse Resp B/P B/P Pulse O2 O2 Flow FiO2 Mean Ox Delivery Rate 11/05 0625 98.2 68 16 112/74 94 Room Air 11/04 2215 77 122/66 11/04 221 97.9 77 16 122/66 96 Room Air 11/04 1517 98.3 71 18 112/68 96 Room Air 11/04 0930 67 126/78 11/04 0930 67 126/78 Intake & Output 11/05 0800 11/05 0000 11/04 1600 Intake Total 800 Output Total Balance 800 Intake, Oral 800 Number 1 Bowel Movements Physical Exam General Appearance: Alert, Oriented X3, Cooperative, No Acute Distress Cardiovascular: Regular Rate, Normal S1, Normal S2 Lungs: Clear to Auscultation Abdomen: Normal Bowel Sounds, Soft, No Tenderness Neurological: Normal Speech Extremities: stable Current Medications: Current Medications Sig/Sabas Start time Last Medication Dose Route Stop Time Status Admin Acetaminophen 975 MG Q8P PRN 11/03 1100 AC PO Amlodipine Besylate 2.5 MG DAILY 11/03 1000 AC 11/04 PO 0930 Aspirin Buffered 81 MG DAILY 11/03 1000 AC 11/04 PO 0930 Enoxaparin Sodium 40 MG DAILY 11/03 1000 AC 11/04 SC 0930 Ibuprofen 400 MG Q8P PRN 11/02 2315 AC PO Lidocaine 20 ML .STK-MED ONE 11/04 1333 DC IA 11/04 1334 Metoprolol Tartrate 12.5 MG BID 11/02 2359 AC 11/04 PO 2215 Assessment/Plan Assessment: 87 years old female with past medical history of CAD and hypertension who presented with complaints of pain in the left ankle. Problem list 1. Left ankle pain #Left ankle pain: X-ray show degenerative changes and soft tissue swelling but no fracture. Exam revealed tenderness on flexion of the metatarsal joint and ankle. MRI was inconclusive, indicated potential arthritis, sequelae of trauma, stress injury, or mild fasciitis. Gout and pseudogout are less likely because there is no effusion, uric acid not elevated. CRP and ESR was elevated. -PT evaluation -Pain control -Appreciate rheumatology recommendations #Chronic medical conditions: -Continue home medications DVT prophylaxis with enoxaparin Heart healthy diet Full code Problem List: 1. Left ankle pain Pain Ratin Pain Location: no Pain Goal: Remain pain free Pain Plan: no Tomorrow's Labs & Rationales: no
--- NOTE | 2017-11-05 08:37 | Cons- Rheumatology ---
General Information and HPI Consulting Request Date of Consult: 11/05/17 Requested By: Francisco Werner MD Reason for Consult: Evaluate painful swollen left foot Source of Information: patient, family Exam Limitations: no limitations History of Present Illness: This is an 87-year-old female who was admitted to the hospital 3 days ago with the relatively abrupt onset of painful swollen left foot and ankle. The patient and her daughter state that she's had foot problems before but never to this extent with pain and swelling. She has been on in the care of a health and wellness director and is received in the past local steroid injections for painful feet. There is no history of pain or swelling of other joints such as her hands wrists or knees. Thus far her workup in the hospital has consisted of the CBCs revealing generalized anemia. She also has a very high sedimentation rate of 129. Her uric acid level is 3.2. An x-ray and MRI of the foot reveals no fractures or erosive changes there are moderate degenerative changes of the foot and ankle. She has not had a fever in the hospital. Apparently an aspiration of her left ankle was done yesterday but no fluid was obtained by the house staff. Allergies/Medications Allergies: Coded Allergies: NO KNOWN ALLERGIES (12/18/13) Home Med List: Amlodipine Besylate 2.5 MG TABLET 1 TAB PO DAILY HEART (Reported) Aspirin (Ecotrin*) 81 MG TABLET.DR 1 TAB PO DAILY HEART HEALTH (Reported) Meloxicam (Mobic) 7.5 MG TABLET 1 TAB PO DAILY foot pain Metoprolol Tartrate 25 MG TABLET 0.5 TAB PO BID HEART (Reported) Current Medications: Current Medications Sig/Sabas Start time Last Medication Dose Route Stop Time Status Admin Acetaminophen 975 MG Q8P PRN 11/03 1100 AC PO Amlodipine Besylate 2.5 MG DAILY 11/03 1000 AC 11/04 PO 0930 Aspirin Buffered 81 MG DAILY 11/03 1000 AC 11/04 PO 0930 Enoxaparin Sodium 40 MG DAILY 11/03 1000 AC 11/04 SC 0930 Ibuprofen 400 MG Q8P PRN 11/02 2315 AC PO Lidocaine 20 ML .STK-MED ONE 11/04 1333 DC IA 11/04 1334 Metoprolol Tartrate 12.5 MG BID 11/02 2359 AC 11/04 PO 2215 Review of Systems Review of Systems: There is no history of fever rashes or kidney stones. Past History Travel History Traveled to [place] past 21 day No Medical History Blood Transfusion Hx: No Neurological: NONE EENT: NONE Cardiovascular: CAD, hypertension Respiratory: NONE Gastrointestinal: NONE Hepatic: NONE Renal: NONE Musculoskeletal: NONE Psychiatric: NONE Endocrine: NONE Blood Disorders: NONE Cancer(s): NONE [employer]/Reproductive: NONE Surgical History Surgical History: non-contributory Family History Relations & Conditions If Any: Relation not specified for: *No pertinent family history Psychosocial History Where Do You Live? Home Services at Home: None Smoking Status: Never Smoked Exam & Diagnostic Data Vital Signs and I&O Vital Signs Date Time Temp Pulse Resp B/P B/P Pulse O2 O2 Flow FiO2 Mean Ox Delivery Rate 11/05 0625 98.2 68 16 112/74 94 Room Air 11/04 2215 77 122/66 11/04 2211 97.9 77 16 122/66 96 Room Air 11/04 1517 98.3 71 18 112/68 96 Room Air 11/04 0930 67 126/78 11/04 0930 67 126/78 Physical Exam: On examination she's well-developed well-nourished intact elderly female lying comfortably in bed with her daughter at her side her hands revealed moderate degenerative changes of tickly at the base of both thumbs. There is subtle Heberden's nodes but no actively swollen or tender joints of her upper extremities which have good range of motion her knees have no swelling warmth or tenderness left foot reveals no swelling or redness and she has good range of motion. The described area of previous swelling and erythema was over the medial aspect of the left ankle. 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 Pseudogout is possible old there are no radiographic changes reported of chondrocalcinosis. Gout is a little less likely in face of a normal to low level of uric acid. A septic process is unlikely and a fracture has been ruled out by an MRI. There are some inflammatory changes seen in the region of the heel on the MRI Recommendations: I have no recommendations at present since her foot pain and swelling have resolved. There are really no diagnostic tests now that wouldn't change my impression. Apparently she seems able to bear weight and I could follow up as an outpatient should this occur in the future. Consult Acknowledgment - Thank you for your consult request.
[2017-11-05] MEDS ORDERED: VOLTAREN100 GM TOP (10:09)
[2017-11-05 10:38] VITALS: BP 112/74
[2017-11-05 10:45] VITALS: BP 118/78
== END 2017-11-05 13:23 | DRG 554 ==
LOC: ERH 11:03 → ERHI 20:51 → 2NB 20:51 → ENRESERV 21:14 → ENTRNSPT 22:03 → EDTRNSPTSTS 22:12 → EDTRNSPT 22:12 → 2NB 22:17 → CMPTRNSPT 22:31 → 2NB 11-03 08:56 → ENPENDDIS 11-05 10:42 → ENTRNSPT 11-05 12:57 → EDTRNSPTSTS 11-05 13:14 → EDTRNSPT 11-05 13:14 → 2NB 11-05 13:23 → CMPTRNSPT 11-05 13:23
PROVIDERS: Emergency Medicine; Internal Medicine Hematology & Oncology
DX: M19.072 Primary osteoarthritis, left ankle and foot (principal); G31.84 Mild cognitive impairment of uncertain or unknown etiology; I10 Essential (primary) hypertension; I25.10 Atherosclerotic heart disease of native coronary artery without angina pectoris; R26.89 Other abnormalities of gait and mobility
CPT/HCPCS: 2NBSP; 75618; 75657; 36415; 36592; 73610-LT; 73630-LT; 82436; 87040; 87086; 93005; 93010; 97116-GO; 97161-GP; 97530-GO; J1650